=== PATIENT | female | born 1995 | race African-American/Black ===

== ENCOUNTER 2024-03-27 02:28 | Emergency (ER) | payer OTHER ==
[~2024-03-27] VITALS: Ht 157.5 cm; Wt 73.0 kg
[2024-03-27 02:34] VITALS: O2SAT 98
[2024-03-27 03:39] LABS: CHLORIDE 110 mEq/L (98-107); POTASSIUM 4.1 mEq/L (3.5-5.1); SODIUM 139 mEq/L (136-145)
[2024-03-27 03:40] LABS: CALCIUM 9.4 mg/dL (8.7-10.4); CARBON DIOXIDE 23 mEq/L (21-32)
[2024-03-27 03:43] LABS: BASOPHILS % 0.3 % (0.0-2.0); HEMATOCRIT. 38.7 % (36.0-48.0); HEMOGLOBIN. 12.3 g/dL (12.0-16.0); LYMPHOCYTES % 29.9 % (20.0-50.0); MEAN CORPUSCULAR HEMOGLOBIN 27.3 pg (28.0-32.0); MEAN CORPUSCULAR HGB CONC 31.7 g/dL (31.0-37.0); MEAN CORPUSCULAR VOLUME 86.2 fL (81.0-99.0); MEAN PLATELET VOLUME 9.9 fl (7.4-10.4); MONOCYTES % 6.5 % (2.0-8.0); NEUTROPHILS % 59.3 % (40.0-76.0); PLATELET 283 x1000/uL (130-400); RED BLOOD CELL COUNT 4.48 mill/uL (4.2-5.4); WHITE BLOOD COUNT 8.7 x1000/uL (4.5-11.0)
[2024-03-27 03:45] LABS: CREATININE 0.8 mg/dL (0.6-1.0); ETHANOL BLOOD 31 mg/dL (<10); GLUCOSE 83 mg/dL (70-105); UREA NITROGEN BLOOD 6 mg/dL (9-23)
[2024-03-27 04:27] LABS: *AMPHETAMINES SCREEN URINE NEGATIVE (NEGATIVE); *BARBITURATES SCREEN URINE NEGATIVE (NEGATIVE); *BENZODIAZEPINES SCREEN URINE PRESUMPTIVE POSITIVE (NEGATIVE); *COCAINE SCREEN URINE NEGATIVE (NEGATIVE)
[2024-03-27 04:28] LABS: CANNABINOID URINE SCREEN NEGATIVE (NEGATIVE); ECSTASY MDMA SCREEN URINE NEGATIVE (NEGATIVE); METHADONE URINE SCREEN NEGATIVE (NEGATIVE); OPIATES URINE SCREEN NEGATIVE (NEGATIVE); PHENCYCLIDINE URINE SCREEN NEGATIVE (NEGATIVE)
[2024-03-27] MEDS: ONDANSETRON HCL 4MG/2ML INJ IV STA (04:28)
[2024-03-27] MEDS: LORAZEPAM 2MG/ML INJ IV ONE (04:29)
[2024-03-27] MEDS: MAGNESIUM 2 G PREMIX 50 ML IV ONE (04:32)
[2024-03-27] MEDS: FOLIC ACID 1 MG, THIAMINE HCL 100 MG, MVI, ADULT NO.1 10 ML in DEXTROSE 5% WATER 1,000 ML IV ONE (05:24)
[2024-03-27 07:28] VITALS: TEMP 37.05852
[2024-03-27 07:59] VITALS: BP 111/56; PULSE 89; RESP 15; O2SAT 98
== END 2024-03-27 08:07 | disposition short-term general hospital (02) ==
LOC: ER 02:28
DX: R25.1 Tremor, unspecified (principal); R11.0 Nausea; F10.239 Alcohol dependence with withdrawal, unspecified; Y90.1 Blood alcohol level of 20-39 mg/100 ml
CPT/HCPCS: 80305; 80048; 80320; 85025; 36415; 93005; 96367; 96365; 96375; 99285; J3490 ×2; J2060; J3475; J2405; J3411; J7070; Z7610 ×2; G0480

== ENCOUNTER 2024-04-01 09:02 | Emergency (ER) | payer OTHER ==
[~2024-04-01] VITALS: Ht 165.1 cm; Wt 84.0 kg
[2024-04-01 09:13] VITALS: BP 116/80; PULSE 99; RESP 16; TEMP 98.1; O2SAT 98
[2024-04-01] MEDS ORDERED: LORAZEPAM 1MG TABLET PO ONE (09:30)
== END 2024-04-01 12:25 | disposition home or self-care (01) ==
LOC: ER 09:02
DX: F10.129 Alcohol abuse with intoxication, unspecified (principal); R00.0 Tachycardia, unspecified; J45.909 Unspecified asthma, uncomplicated; Y90.8 Blood alcohol level of 240 mg/100 ml or more
CPT/HCPCS: 82962; 99291